=== PATIENT | male | born 1965 | race Caucasian/White ===

== ENCOUNTER 2021-03-20 08:12 | Emergency (ER) | payer OTHER ==
[2021-03-20] MEDS ORDERED: ERYTHROMYCIN O3.5 GM OU (09:20)
== END 2021-03-20 09:42 | disposition home or self-care (01) ==
LOC: ER1 08:12
DX: T15.01XA Foreign body in cornea, right eye, initial encounter (principal); F17.210 Nicotine dependence, cigarettes, uncomplicated; W45.8XXA Other foreign body or object entering through skin, initial encounter
CPT/HCPCS: 65205; 99283